=== PATIENT | female | born 1990 | race Hispanic/Latino ===

== ENCOUNTER 2017-08-09 17:05 | Observation (INO) | payer OTHER ==
[~2017-08-09] VITALS: Ht 162.6 cm; Wt 101.6 kg
[2017-08-09 18:23] LABS: BILIRUBIN,URINE NEGATIVE (NEGATIVE); UROBILINOGEN,URINE NORMAL (NEGATIVE)
[2017-08-09 18:26] LABS: APPEARANCE,URINE CLEAR (CLEAR); UA COLOR YELLOW (YELLOW)
== END 2017-08-09 19:40 | disposition home or self-care (01) ==
LOC: ATP 17:05
PROVIDERS: ADMIT Hospitalist; ATTEND Hospitalist
DX: O62.9 Abnormality of forces of labor, unspecified (principal); O26.893 Other specified pregnancy related conditions, third trimester; R03.0 Elevated blood-pressure reading, without diagnosis of hypertension; Z3A.38 38 weeks gestation of pregnancy
CPT/HCPCS: 59025; 81002; G0378 ×3

== ENCOUNTER → 2017-08-13 | Outpatient (CLI) | payer OTHER ==
[~2017-08-13] MED LIST: HYDR-925 PO
[2017-08-13 12:25] LABS: BILIRUBIN,URINE NEGATIVE (NEGATIVE); UROBILINOGEN,URINE NORMAL (NEGATIVE)
[2017-08-13 12:49] LABS: APPEARANCE,URINE CLOUDY (CLEAR); UA COLOR YELLOW (YELLOW)
== END | disposition home or self-care (01) ==
LOC: OPOB 11:15
PROVIDERS: ATTEND Hospitalist
DX: O09.893 Supervision of other high risk pregnancies, third trimester (principal); O14.03 Mild to moderate pre-eclampsia, third trimester; Z3A.38 38 weeks gestation of pregnancy
CPT/HCPCS: 59025; 80307; 81000; 87086

== ENCOUNTER 2017-08-16 02:07 | Inpatient (IN) | payer OTHER ==
[2017-08-16] VITALS (8 sets, daily range): BP systolic 95–139; BP diastolic 34–95
[~2017-08-16] VITALS: Ht 165.1 cm; Wt 101.6 kg
[2017-08-16 02:58] LABS: BILIRUBIN,URINE NEGATIVE (NEGATIVE); UROBILINOGEN,URINE NORMAL (NEGATIVE)
[2017-08-16 03:04] LABS: APPEARANCE,URINE CLEAR (CLEAR); UA COLOR YELLOW (YELLOW)
[2017-08-16] MEDS: LACTATED RINGERS 1,000 ML IV PRN ×5 (03:30→23:57)
[2017-08-16] MEDS ORDERED: LACTATED RINGERS 1,000 ML IV SCH ×3 (04:00→10:00)
[2017-08-16] MEDS ORDERED: SUBLIMAZE IV PRN (04:00)
[2017-08-16] MEDS ORDERED: PHENERGAN IV PRN ×2 (04:00→13:00)
[2017-08-16] MEDS ORDERED: STADOL IV PRN (04:00)
[2017-08-16] MEDS ORDERED: ZOFRAN IV PRN ×3 (04:00→16:30)
[2017-08-16] MEDS ORDERED: DEMEROL IV PRN ×2 (04:00→13:00)
[2017-08-16] MEDS ORDERED: PHENERGAN 25 MG in HNS 50ML 50 ML IV PRN ×2 (04:00→15:00)
[2017-08-16] MEDS ORDERED: AMPICILLIN SODIUM IV ONE (09:00)
[2017-08-16] MEDS ORDERED: BENADRYL IV PRN ×2 (09:00→16:30)
[2017-08-16] MEDS ORDERED: BICITRA PO ONE (09:00)
[2017-08-16] MEDS ORDERED: XYLOCAINE SQ PRN (09:00)
[2017-08-16 09:22] LABS: MEAN CELL HGB 31.5 pg (26-34); MEAN CELL HGB CONCENTRATION 33.7 g/dL (33-37); MEAN CORP VOLUME 93.5 fL (78-100); MEAN PLATELET VOLUME 11.5 fL (7.8-11.0); RED CELL DISTRIBUTION WIDTH 13.6 % (11.5-14.5); WHITE BLOOD CELL 11.1 10^3/uL (4.5-11.0)
[2017-08-16] MEDS ORDERED: SENSORCAINE-MPF 0.25% VIAL ONE (09:40)
[2017-08-16] MEDS ORDERED: NAROPIN 0.2% 100 ML BAG 100 ML ONE (09:41)
[2017-08-16] MEDS ORDERED: LR/PITOCIN 500 ML IV SCH ×2 (10:00→15:00)
[2017-08-16] MEDS ORDERED: SODIUM CHLORIDE IR ONE (11:41)
--- NOTE | 2017-08-16 11:44 | PCM.HP ---
OB - Chief Complaint & HPI Date of Admission: Date of Admission: Aug 16, 2017 at 02:07 Diagnosis Racheal is a Japanese-only speaking 26yo with very late PNC with Paulette at the [facility] (she began 35 weeks' gestation), who presented in the middle of the night in active labor. I performed AROM/clear fluid this am and placed internal monitors. Pt is 5/70/-3/vertex, however the FHR baseline continues to have deep variable decels with late component, and I am not comfortable with this primigravida continuing to labor when the station is so high. Contraction pattern is excellent (without any Pitocin whatsoever). Chief Complaint/History : 1 Para: 0 EDC: Aug 17, 2017 EGA: 39 6/7 weeks Reason for admission: active labor Admission Nurse Assessment Rev: Yes OB - History Hx of Present Care: Limited Care (Pt apparently did have PNC in [place] prior to starting with Paulette, however her records were not available.) Other Concerns: Pt was being followed for pre-eclampsia, and she has had 24-Hr urine collections. Her highest was on 07/19 when the 24-Hr urinary protein was 482.4mg' s. Her last 24-Hr urinary protein on 08/09/2017 was 361.7mg's. She has 2+ pitting edema to her lower extremities bilaterally. Whenever the patient was sent over to L&D for monitoring, her BPs were normal. Past Family/Social History * Past Medical, Surgical, Family and Obstetric Histories reviewed from chart. Rubella: immune RPR/VDRL: Negative GBS Status: Positive HBsAG: Negative OB - Admission Exam Physical Exam Vitals: VS - Last 72 Hours, by Label Date Time Temp Pulse Resp B/P (MAP) Pulse Ox O2 Delivery O2 Flow Rate FiO2 08/16/17 03:11 Room Air HEENT: NCAT Lungs: Clear Abdomen: Gravid Extremities: Normal, Edema (2+ pitting pretibial/pedal edema bilaterally) Reflexes: Other Cervical Dilatation: 5cm Effacement: Other (70%) Station: -3 Membranes: Ruptured Amniotic Fluid: Clear Heart Rate: 120's Accelerations: Accelerations Present Decelerations: Variable Decelerations (with late component) Residential Variability: Average (6-25) Contractions on Admission: < 5 Minutes Apart Frequency of Contractions: Q 2mins apart Intensity: Moderate Presentation: vtx OB - Assessment/Plan Assessment Assessment: active labor Plan Plan: Section AJAY GUZMAN MD Aug 16, 2017 11:43
[2017-08-16] MEDS ORDERED: AMPICILLIN IV SCH (12:00)
[2017-08-16] MEDS ORDERED: AMPICILLIN 1 GM in NS 100ML 100 ML IV SCH (12:00)
[2017-08-16] MEDS ORDERED: PITOCIN 0.02 UNIT in LACTATED RINGERS 1 ML IV SCH (12:58)
[2017-08-16] MEDS ORDERED: BRETHINE SQ STA (12:58)
[2017-08-16] MEDS ORDERED: ZOFRAN ODT SL PRN (13:00)
[2017-08-16] MEDS ORDERED: NORCO 7.5MG PO PRN ×2 (13:00)
[2017-08-16] MEDS ORDERED: AMBIEN PO PRN (13:00)
[2017-08-16] MEDS ORDERED: BENADRYL PO PRN (13:00)
[2017-08-16] MEDS ORDERED: GAVISCON ES TABLET CHEW PO PRN (13:00)
[2017-08-16] MEDS ORDERED: DILAUDID IV PRN (13:00)
[2017-08-16] MEDS ORDERED: MILK OF MAGNESIA PO PRN (13:00)
--- NOTE | 2017-08-16 13:11 | PRM.OPH ---
Immediate Post Op Note Summary of Operation Date: Aug 16, 2017 Time: 13:03 Pre-Operative DX: IUP @ 39 6/7 WKS; PRIMIGRAVIDA; ACTIVE LABOR; NON-REASSURING HEART RA Post-OP DX: SAME Anesth.Used: EPIDURAL Indications: PRIMARY LOW TRANSVERSE SECTION VIA PFANNENSTIEL SKIN INCISION Physician's Summary: Healthy-appearing liveborn male infant in ROP position, nuchal cord X 1, clear- colored fluid/membranes throughout. Baby boy born at 1227, scores of 8 and 9, weight 3238g (= 7# 2.2oz). Normal-appearing placenta. Normal-appearing uterus with approx 3-4cm sessile fibroid posteriorly to the right. Normal- appearing ovaries bilaterally, tubes bilaterally. Baby had caput and molding present, giving rise to the possibility of cephalopelvic disproportion. Assistants: Listed Assisting Physicians RODRI BUSTILLO DO; GRAYSON HADLEY M[employer]UAL [employer] SALES AGENT; MICHAEL JORDAN CST Anesthesiologist/BACK UP WORKER NIC DEAN BACK UP WORKER Specimen(s) Removed: List Specimen: NONE SENT Estimated Blood Loss: EBL/ESTIMATED BLOOD LOSS: (MIL: 500 Complications: Complications: NONE Assessment & Plan: Update Surgical HX/Problems: (1) Status post primary low transverse section (2) Non-reassuring electronic monitoring tracing (3) 39 weeks gestation of Assessment & Plan: Routine postop/ care. AJAY GUZMAN MD Aug 16, 2017 13:11
--- NOTE | 2017-08-16 15:19 | NUR ---
[facility] CLOUDY SECRETIONS, CONTINUED TO DRY AND STIMULATE, APGARS 8& 9, LEFT PT WITH L & D STAFF Addendum: 08/16/17 at 1521 by Ioana Dubois, CANDLE MAKER RT Amended: Links added.
[2017-08-16] MEDS ORDERED: REGLAN IV PRN (16:30)
[2017-08-16] MEDS ORDERED: NUBAIN IV PRN (16:30)
[2017-08-16] MEDS ORDERED: NARCAN IV PRN (16:30)
[2017-08-16] MEDS ORDERED: NORCO 10MG PO PRN (16:30)
[2017-08-16] MEDS ORDERED: NORCO 5MG PO PRN (16:30)
[2017-08-16] MEDS ORDERED: TORADOL IV SCH (18:00)
[2017-08-16] MEDS: TORADOL IV SCH ×2 (18:30→23:57)
[2017-08-16] MEDS ORDERED: LACTATED RINGERS 1,000 ML ONE (23:52)
[2017-08-16] MEDS ORDERED: TORADOL ONE (23:53)
[2017-08-17] MEDS ORDERED: LANOLIN HYDROUS TP PRN
[2017-08-17 05:24] LABS: BASOPHIL % 0.1 % (0.0-0.2); EOSINOPHIL # 0.1 10^3/uL (0.0-0.2); EOSINOPHIL % 0.9 % (0.0-5.0); HEMOGLOBIN 11.3 g/dL (12.0-15.0); LYMPHOCYTES % 18.2 % (24.0-44.0); MEAN CELL HGB 31.7 pg (26-34); MEAN CELL HGB CONCENTRATION 33.2 g/dL (33-37); MEAN CORP VOLUME 95.2 fL (78-100); MEAN PLATELET VOLUME 11.1 fL (7.8-11.0); MONOCYTES # 0.7 10^3/uL (0.3-0.8); MONOCYTES % 6.2 % (5.0-12.0); NEUTROPHIL # 8.1 10^3/uL (1.8-7.7); NEUTROPHILS % 74.2 % (41.0-85.0); RED CELL DISTRIBUTION WIDTH 13.8 % (11.5-14.5)
[2017-08-17] MEDS ORDERED: TORADOL ONE (05:57)
[2017-08-17] MEDS: TORADOL IV SCH (06:07)
[2017-08-17] MEDS ORDERED: PRENATAL VITAMIN TABLET PO ONE (09:19)
[2017-08-17] MEDS: PRENATAL VITAMIN TABLET PO SCH (09:42)
[2017-08-17] MEDS ORDERED: ROCEPHIN 1,000 MG in NS 100ML 100 ML IV SCH (10:00)
[2017-08-17] MEDS ORDERED: NORCO 10MG PO ONE (13:21)
[2017-08-17] MEDS ORDERED: HYDR-925 PO (17:24)
--- NOTE | 2017-08-17 17:35 | PRM.DC ---
OB Discharge Summary Discharge Summary Discharge Diagnosis: S/P (S/P PRIMARY SECTION FOR INTOLERANCE TO LABOR) Complications: No Complications Abnormal Lab Results Laboratory Tests Test 08/16/17 00:00 08/16/17 09:13 08/17/17 04:56 Urine Collection Type UNKNOWN Urine Color YELLOW Urine Appearance CLEAR Urine Bilirubin NEGATIVE MG/DL Urine Ketones NEGATIVE Urine Specific [place] 1.010 Urine pH 7 Urine Protein NEGATIVE Urine Urobilinogen NORMAL Urine Nitrate NEGATIVE Urine Leukocyte Esterase NEGATIVE Urine Blood 50 2+ Urine RBC 0-2 RBC/HPF Urine WBC 0-2 WBC/HPF Urine Squamous Epithelial Cells MANY #/HPF Urine Bacteria NONE SEEN Urine Glucose NORMAL Urine Opiates, Qualitative NEGATIVE ng/mL Urine Methadone, Qualitative NEGATIVE ng/mL Urine Amphetamine Qualitative NEGATIVE ng/mL Urine Barbiturates, Qualitative NEGATIVE ng/mL Urine Phencyclidine Screen NEGATIVE ng/mL Urine MDMA (Ecstasy), Qualitative NEGATIVE ng/mL Urine Benzodiazepines Screen NEGATIVE ng/mL Urine Cocaine Qualitative NEGATIVE ng/mL Ur Tetrahydrocannabinol (THC) Scrn NEGATIVE ng/mL White Blood Count 11.1 10^3/uL 11.0 10^3/uL Red Blood Count 4.44 10^6/uL 3.57 10^6/uL Hemoglobin 14.0 g/dL 11.3 g/dL Hematocrit 41.5 % 34.0 % Mean Corpuscular Volume 93.5 fL 95.2 fL Mean Corpuscular Hemoglobin 31.5 pg 31.7 pg Mean Corpuscular Hemoglobin Concent 33.7 g/dL 33.2 g/dL Red Cell Distribution Width 13.6 % 13.8 % Platelet Count 197 10^3/uL 160 10^3/uL Mean Platelet Volume 11.5 fL 11.1 fL Hepatitis B Surface Antigen Negative Neutrophils (%) (Auto) 74.2 % Lymphocytes (%) (Auto) 18.2 % Monocytes (%) (Auto) 6.2 % Neutrophils # (Auto) 8.1 10^3/uL Lymphocytes # (Auto) 2.0 10^3/uL Monocytes # (Auto) 0.7 10^3/uL Absolute Immature Granulocyte (auto 0.04 10^3 u/L Eosinophils % 0.9 % Basophils % 0.1 % Basophils # 0.0 10^3/uL Eosinophil Count 0.1 10^3/uL Percent Immature Gran (Cell Imm) 0.40 % Medications: Other (Rx [place] 7.5/325 #30 no refills, written on triplicate prescription pad and placed into chart) Discharge Disposition: Stable Discharge Instructions: Pelvic Rest x 6 Weeks, Clinic F/U 1-2 Weeks, Regular Diet, Regular Activity, Meds as Prescribed, Call MD for Problems AJAY GUZMAN MD Aug 17, 2017 17:35
[2017-08-17] MEDS ORDERED: MOTRIN ONE (20:22)
[2017-08-17] MEDS: MOTRIN PO PRN (20:26)
[2017-08-17] MEDS: NORCO 7.5MG PO PRN (20:26)
[2017-08-17] MEDS ORDERED: NORCO 7.5MG PO PRN (20:30)
[2017-08-18] MEDS ORDERED: MOTRIN ONE (06:06)
[2017-08-18] MEDS ORDERED: NORCO 7.5MG PO ONE (06:07)
[2017-08-18] MEDS: MOTRIN PO PRN (06:09)
[2017-08-18] MEDS: NORCO 7.5MG PO PRN (06:10)
[2017-08-18 09:14] VITALS: BP 131/87
--- NOTE | 2017-08-18 09:27 | NUR ---
Post op pain rounds post section and duramorph SAB. Pt is walking in room. Been ambulating since yesterday without problems. All sensations intact. No complications noted. Pain well controlled.
[2017-08-18] MEDS ORDERED: PRENATAL VITAMIN TABLET PO ONE (09:53)
[2017-08-18] MEDS: PRENATAL VITAMIN TABLET PO SCH (09:55)
== END 2017-08-18 11:25 | disposition home or self-care (01) | DRG 766 ==
LOC: OBSVTOIN 02:07 → ATP 02:07 → LND 09:00
PROVIDERS: ADMIT Hospitalist; ATTEND Hospitalist
PROC: 10907ZC Drainage of Amniotic Fluid, Therapeutic from Products of Conception, Via Natural or Artificial Opening (ICD-10-PCS; 2017-08-16)
PROC: 10D00Z1 Extraction of Products of Conception, Low, Open Approach (ICD-10-PCS; principal; 2017-08-16 12:03)
DX: O76 Abnormality in fetal heart rate and rhythm complicating labor and delivery (principal); O34.13 Maternal care for benign tumor of corpus uteri, third trimester; D25.9 Leiomyoma of uterus, unspecified; O32.9XX0 Maternal care for malpresentation of fetus, unspecified, not applicable or unspecified; O99.824 Streptococcus B carrier state complicating childbirth; O69.81X0 Labor and delivery complicated by cord around neck, without compression, not applicable or unspecified; Z37.0 Single live birth; Z3A.39 39 weeks gestation of pregnancy
CPT/HCPCS: 36415; 59025; 76825; 80307; 81000; 85025; 85027; 86900; A4338; J0290; J0696; J1200; J1885; J2001; J2175; J2250; J2405; J2550; J2590; J3010; J3105; J3490; J7030; J7050; J7120; J2274